=== PATIENT | female | born 1995 | race Two or more races ===

== ENCOUNTER 2020-06-13 06:14 | Emergency (ER) | payer OTHER ==
[~2020-06-13] VITALS: Ht 167.6 cm; Wt 54.4 kg
[~2020-06-13 06:14] MED LIST: PERCOCET 5/3251 TAB PO; PRENATAL TABLE1 EAC1 PO
[2020-06-13] MEDS ORDERED: LEVSIN/SL0.125 MG SL (15:20)
[2020-06-13] MEDS ORDERED: ENZYME DIGEST1 EACH PO (15:20)
[2020-06-13] MEDS ORDERED: PEPCID AC20 MG PO (15:20)
[2020-06-13] MEDS ORDERED: KETO10TA2 PO (15:20)
== END 2020-06-13 16:10 | disposition home or self-care (01) ==
LOC: ER 06:14
DX: K29.60 Other gastritis without bleeding (principal); K80.80 Other cholelithiasis without obstruction; K80.20 Calculus of gallbladder without cholecystitis without obstruction; Z03.818 Encounter for observation for suspected exposure to other biological agents ruled out; R10.11 Right upper quadrant pain

== ENCOUNTER 2022-02-13 10:37 | Emergency (ER) | payer OTHER ==
[~2022-02-13] VITALS: Ht 167.6 cm; Wt 72.6 kg
[~2022-02-13 10:37] MED LIST changes: +ENZYME DIGEST1 EACH PO; +KETO10TA2 PO; +LEVSIN/SL0.125 MG SL; +PEPCID AC20 MG PO
== END 2022-02-13 13:45 | disposition home or self-care (01) ==
LOC: ER 10:37
DX: R30.0 Dysuria (principal)

== ENCOUNTER 2024-10-08 14:01 | Emergency (ER) | payer OTHER ==
[~2024-10-08] VITALS: Ht 170.2 cm; Wt 104.3 kg
[2024-10-08] MEDS ORDERED: GUAIFENESIN/DEXTROMETHORPHAN 100MG/10ML BLIST.PACK PO ONE (16:45)
[2024-10-08] MEDS ORDERED: CETIRIZINE HCL 5 MG/5 ML ML PO ONE (16:45)
[2024-10-08 17:30] LABS: HEMATOCRIT 36.1 % (36.0-45.00); HEMOGLOBIN 11.5 g/dL (12.0-15.00); MEAN CORPUSCULAR HEMOGLOBIN 23.8 pg (27.00-32.0); MEAN CORPUSCULAR HGB CONC 31.8 g/dl (32.0-36.0); PLATELET COUNT 492 K/uL (150-450); RED BLOOD COUNT 4.82 M/uL (4.00-6.00); RED CELL DISTRIBUTION WIDTH 16.3 % (11.5-14.5)
[2024-10-08] MEDS ORDERED: TOBRADEX ST EYE5 ML OP (19:04)
[2024-10-08] MEDS ORDERED: TUSSIN DM LIQU118 ML PO (19:04)
[2024-10-08] MEDS ORDERED: ZYRTEC10 MG PO (19:04)
[2024-10-08] MEDS ORDERED: ZITHROMAX500 MG PO (19:04)
== END 2024-10-08 20:10 | disposition home or self-care (01) ==
LOC: ER 14:04
PROVIDERS: Preventive Medicine Public Health & General Preventive Medicine
DX: J06.9 Acute upper respiratory infection, unspecified (principal); J00 Acute nasopharyngitis [common cold]; Z91.018 Allergy to other foods; Z20.822 Contact with and (suspected) exposure to COVID-19

== ENCOUNTER 2024-11-02 09:54 | Emergency (ER) | payer OTHER ==
[~2024-11-02] VITALS: Ht 167.6 cm; Wt 81.6 kg
[~2024-11-02 09:54] MED LIST changes: +TOBRADEX ST EYE5 ML OP; +TUSSIN DM LIQU118 ML PO; +ZITHROMAX500 MG PO; +ZYRTEC10 MG PO
[2024-11-02] MEDS ORDERED: HYDROCODONE/CHLORPHEN P-STIREX 5 ML ML PO STA (11:43)
== END 2024-11-02 11:55 | disposition home or self-care (01) ==
LOC: ER 09:55
DX: J06.9 Acute upper respiratory infection, unspecified (principal); Z91.018 Allergy to other foods

== ENCOUNTER 2025-01-02 08:35 | Emergency (ER) | payer OTHER ==
[~2025-01-02] VITALS: Ht 167.6 cm; Wt 90.7 kg
[2025-01-02 11:27] LABS: BASO % 0.7 % (0.1-1.2); EOS # 0.18 (0.04-0.54); EOS % 2.2 % (0.7-7.0); HEMOGLOBIN 10.7 g/dL (11.2-15.7); LYMPH # 2.53 (1.18-3.74); LYMPH % 31.3 % (19.3-53.1); MONO # 0.44 (0.24-0.82); MONO % 5.4 % (4.7-12.5); NEUT # 4.87 (1.56-6.13); NEUT % 60.3 % (34.0-71.1); PLATELET COUNT 429 K/uL (163-369); RED BLOOD COUNT 4.66 M/uL (3.93-5.22)
[2025-01-02 11:54] LABS: PARTIAL THROMBOPLASTIN TIME 28.8 SECONDS (22.0-34.0); PROTHROMBIN TIME 10.9 SECONDS (9.0-11.5)
[2025-01-02 11:57] LABS: PH,URINE 7.5 (5.0-8.0); URINE APPEARANCE Clear; URINE BILIRRUBIN Negative (NEGATIVE); URINE BLOOD Negative; URINE COLOR Yellow; URINE GLUCOSE Negative (NEGATIVE); URINE KETONE Negative (NEGATIVE); URINE LEUKOCYTE Negative; URINE NITRATE Negative; URINE PROTEIN Negative (NEGATIVE)
[2025-01-02 11:59] LABS: ALBUMIN 3.4 gm/dL (3.4-5.0); BILIRUBIN TOTAL 0.19 mg/dL (0.3-1.2); CREATININE SERUM 0.56 mg/dL (0.55-1.02); GFR 127.11; POTASSIUM 4.02 mEq/L (3.5-5.1); TOTAL PROTEIN 7.4 gm/dL (6.4-8.2)
[2025-01-02 12:01] LABS: URINE BACTERIA 1272.8 uL (0.0-1933); URINE EPITHELIAL CELLS 20.7 uL (0.0-38.8); URINE RBC 15.6 uL (0.0-20.8); URINE WBC 11.3 uL (0.0-23.2)
[2025-01-02] MEDS ORDERED: BUTALB/ACETAMINOPHEN/CAFFEINE 1 TAB TABLET PO ONE ×2 (13:09→13:15)
== END 2025-01-02 15:48 | disposition home or self-care (01) ==
LOC: ER 08:36
PROVIDERS: Emergency Medicine
DX: R42 Dizziness and giddiness (principal); D64.9 Anemia, unspecified; Z91.018 Allergy to other foods

== ENCOUNTER 2025-02-03 17:51 | Emergency (ER) | payer OTHER ==
[~2025-02-03] VITALS: Ht 167.6 cm; Wt 90.7 kg
[2025-02-03] MEDS ORDERED: ACETAMINOPHEN 500 MG GEL..CAP PO ONE (18:45)
[2025-02-03 19:38] LABS: BASO % 0.4 % (0.1-1.2); EOS # 0.10 (0.04-0.54); EOS % 1.4 % (0.7-7.0); LYMPH # 0.79 (1.18-3.74); LYMPH % 11.1 % (19.3-53.1); MEAN PLATELET VOLUME 9.70 fl (9.4-12.4); MONO # 0.68 (0.24-0.82); MONO % 9.5 % (4.7-12.5); NEUT # 5.50 (1.56-6.13); NEUT % 77.2 % (34.0-71.1); RED CELL DISTRIBUTION WIDTH 15.9 % (11.6-14.4)
[2025-02-03 20:23] LABS: COVID-19 AG NEGATIVE (NEGATIVE)
[2025-02-03 20:54] LABS: URINE APPEARANCE Cloudy; URINE BILIRRUBIN Negative (NEGATIVE); URINE BLOOD Negative; URINE COLOR Dark Yellow; URINE GLUCOSE Negative (NEGATIVE); URINE KETONE Trace (NEGATIVE); URINE LEUKOCYTE Negative; URINE NITRATE Negative; URINE PROTEIN 30 (NEGATIVE); URINE UROBILINOGEN 1.0 E.U./dl
[2025-02-03 20:55] LABS: URINE BACTERIA 1463.8 uL (0.0-1933); URINE EPITHELIAL CELLS 28.5 uL (0.0-38.8); URINE RBC 8.3 uL (0.0-20.8); URINE WBC 13.6 uL (0.0-23.2)
[2025-02-03 21:02] LABS: URINE CAST 0.43 uL (0.0-1.40)
== END 2025-02-03 22:02 | disposition home or self-care (01) ==
LOC: ER 17:57
PROVIDERS: General Practice
DX: J02.9 Acute pharyngitis, unspecified (principal); Z20.822 Contact with and (suspected) exposure to COVID-19; Z91.018 Allergy to other foods

== ENCOUNTER 2025-02-13 09:37 | Emergency (ER) | payer OTHER ==
[~2025-02-13] VITALS: Ht 167.6 cm; Wt 90.7 kg
[2025-02-13 11:46] LABS: BASO % 0.3 % (0.1-1.2); EOS # 0.31 (0.04-0.54); EOS % 3.6 % (0.7-7.0); LYMPH # 2.54 (1.18-3.74); LYMPH % 29.6 % (19.3-53.1); MEAN PLATELET VOLUME 9.40 fl (9.4-12.4); MONO # 0.37 (0.24-0.82); MONO % 4.3 % (4.7-12.5); NEUT # 5.31 (1.56-6.13); NEUT % 62.0 % (34.0-71.1); RED CELL DISTRIBUTION WIDTH 15.6 % (11.6-14.4)
[2025-02-13 12:13] LABS: ALT/SGPT 41.0 U/L (12-78); AST/SGOT 25.0 U/L (15-37); BILIRUBIN TOTAL 0.25 mg/dL (0.3-1.2); BUN CREA RATIO 16.0 (7.0-25.0); CREATININE SERUM 0.55 mg/dL (0.55-1.02); GFR 129.78; GLOBULINA 4.0 G/DL (2.4-3.5); GLUCOSE FASTING 132.0 mg/dL (65-100); OSMOLALITY SERUM 282.0 MOSM/KG (275-295)
[2025-02-13 13:08] LABS: URINE APPEARANCE Clear; URINE BILIRRUBIN Negative (NEGATIVE); URINE BLOOD Negative; URINE COLOR Yellow; URINE GLUCOSE Negative (NEGATIVE); URINE KETONE Negative (NEGATIVE); URINE LEUKOCYTE Negative; URINE NITRATE Negative; URINE PROTEIN Negative (NEGATIVE); URINE UROBILINOGEN 0.2 E.U./dl
[2025-02-13 13:12] LABS: URINE BACTERIA 253.2 uL (0.0-1933); URINE EPITHELIAL CELLS 7.0 uL (0.0-38.8); URINE RBC 2.4 uL (0.0-20.8); URINE WBC 4.6 uL (0.0-23.2)
[2025-02-13 13:16] LABS: URINE CAST 0.00 uL (0.0-1.40)
== END 2025-02-13 13:37 ==
LOC: ER 09:37
PROVIDERS: General Practice
DX: N30.90 Cystitis, unspecified without hematuria (principal); R30.0 Dysuria; Z91.018 Allergy to other foods

== ENCOUNTER → 2025-05-25 | Emergency (ER) | payer OTHER ==
[~2025-05-25] VITALS: Ht 162.6 cm; Wt 113.4 kg
[~2025-05-25] MED LIST changes: +HYDROXYZINE HCL25 MG PO
[2025-05-25 14:26] VITALS: BP 103/79; O2SAT 99
[2025-05-25 17:33] LABS: BASO % 0.3 % (0.1-1.2); EOS # 0.18 (0.04-0.54); EOS % 1.5 % (0.7-7.0); LYMPH # 2.61 (1.18-3.74); LYMPH % 21.9 % (19.3-53.1); MEAN PLATELET VOLUME 9.80 fl (9.4-12.4); MONO # 0.60 (0.24-0.82); MONO % 5.0 % (4.7-12.5); NEUT # 8.45 (1.56-6.13); NEUT % 71.0 % (34.0-71.1); RED CELL DISTRIBUTION WIDTH 15.7 % (11.6-14.4)
[2025-05-25 18:05] LABS: ALT/SGPT 25.0 U/L (12-78); AST/SGOT 11.0 U/L (15-37); BILIRUBIN TOTAL 0.37 mg/dL (0.3-1.2); BUN CREA RATIO 15.0 (7.0-25.0); CREATININE SERUM 0.73 mg/dL (0.55-1.02); GFR 92.99; GLOBULINA 3.9 G/DL (2.4-3.5); GLUCOSE FASTING 138.0 mg/dL (65-100); OSMOLALITY SERUM 283.0 MOSM/KG (275-295)
== END | disposition home or self-care (01) ==
LOC: ER 14:07
DX: F41.9 Anxiety disorder, unspecified (principal); Z91.018 Allergy to other foods